=== PATIENT | female | born 2000 | race Caucasian/White ===

== ENCOUNTER 2020-07-27 07:34 | Emergency (ER) | payer SELFPAY ==
--- NOTE | 2020-07-27 08:20 | ER ---
Nurse's Notes [facility] Name: Fiona Kelley Age: 19 yrs Sex: Female : 2000 Arrival Date: 07/27/2020 Time: 07:39 Bed Waiting Private MD: Diagnosis: Presentation: 07/27 07:55 Chief complaint: Patient states: Twisted ankle and "heard it pop"at work around 6am aa5 today. Swelling and pain to right ankle. Coronavirus screen: At this time, the client does not indicate any symptoms associated with coronavirus-19. Ebola Screen: Patient negative for fever greater than or equal to 101.5 degrees Fahrenheit, and additional compatible Ebola Virus Disease symptoms. Initial Sepsis Screen: Does the patient meet any 2 criteria? No. Patient's initial sepsis screen is negative. Does the patient have a suspected source of infection? No. Patient's initial sepsis screen is negative. Risk Assessment: Do you want to hurt yourself or someone else? Patient reports no desire to harm self or others. Onset of symptoms was July 27, 2020. 07:55 Method Of Arrival: Wheelchair aa5 07:55 Acuity: ABDIRAHMAN 4 aa5 Historical: - Allergies: 07:56 No Known Allergies; aa5 - PMHx: 07:56 Asthma; aa5 - PSHx: 07:56 None; aa5 - Immunization history:: Adult Immunizations up to date. - Social history:: Smoking status: Patient reports the use of cigarette tobacco products, smokes one-half pack cigarettes per day. Vital Signs: 07:55 BP 120 / 75; Pulse 79; Resp 16 S; Temp 98.0(TE); Pulse Ox 99% on R/A; aa5 ED Course: 07:39 Patient arrived in ED. am2 07:56 Triage completed. aa5 07:56 Arm band placed on. aa5 08:19 Jose Lester MD is Attending Physician. aa5 Administered Medications: No medications were administered Outcome: 08:18 Eloped from waiting room, post triage evaluation and consult. X-ray tech looked for pt aa5 in ER lobby to complete x-ray and registration staff reported pt eloped. 08:19 Patient left the ED. aa5 Signatures: Carol Ferris RN RN aa5 Berna Guerra am2 Corrections: (The following items were deleted from the chart) 07:57 07:55 Chief complaint: Patient states: Twisted ankle at work around 6am today. Swelling aa5 and pain to right ankle. aa5
[2020-07-27 08:28] VITALS: BP 120/75; TEMP 98; O2SAT 99
== END 2020-07-27 08:19 | disposition left against medical advice (07) ==
LOC: ER 07:34
DX: Z53.21 Procedure and treatment not carried out due to patient leaving prior to being seen by health care provider (principal)
CPT/HCPCS: 99281

== ENCOUNTER 2023-11-10 16:41 | Observation (INO) | payer BC ==
--- NOTE | 2023-11-10 17:43 | RAD REPORT ---
EXAM DESCRIPTION: US - Abdomen Exam Limited - 11/10/2023 5:26 pm CLINICAL HISTORY: ABD PAIN COMPARISON: <Comparisons> FINDINGS: The gallbladder demonstrates a stone in the neck. No pericholecystic fluid or gallbladder wall thickening. The common bile duct is normal measuring 4 mm. The liver demonstrates no findings of intrahepatic biliary dilatation. IMPRESSION: Cholelithiasis.
[2023-11-10 17:53] LABS: Absolute Basophils 0.1 K/uL (0-0.5); Absolute Eosinophils 0.3 K/uL (0-0.5); Absolute Monocytes 0.6 K/uL (0.1-1.3); Absolute Neutrophil 10.1 K/uL (1.8-8.0); Basophils % 0.5 % (0-1.3); Eosinophils % 2.4 % (0-4.4); Hematocrit 39.7 % (36.0-45.0); Hemoglobin 13.3 g/dL (12.0-15.0); Lymphocytes % 15.2 % (15.3-44.8); MCH 30.2 pg (27.0-35.0); MCHC 33.4 g/dL (32.0-36.0); MCV 90.4 fL (80-100); MPV 8.3 fL (7.6-11.3); Monocytes % 4.5 % (3.3-12.3); Neutrophils % 77.4 % (41.7-73.7); Platelets 325 thou/uL (152-406); RBC Red Blood Cell Count 4.39 M/uL (3.86-4.86)
[2023-11-10 17:54] LABS: Specific Gravity 1.007 (1.005-1.030)
[2023-11-10 17:58] LABS: Specific Gravity 1.007 (1.005-1.030); Sqamous Epithelial <5 /HPF (None Seen); Urine Bacteria None Seen /HPF (<20); Urine Bilirubin NEGATIVE (Negative); Urine Blood 1+ (Negative); Urine Clarity Clear (Clear); Urine Color Colorless (Yellow); Urine Culture Reflex Order NOT NEEDED; Urine Glucose NEGATIVE (Negative); Urine Ketones NEGATIVE (Negative); Urine Microscopic Reflex YN ORDER UMIC; Urine Nitrite NEGATIVE (Negative); Urine Protein NEGATIVE (Negative); Urine RBC <5 /HPF (None Seen); Urine Urobilinogen Normal (Normal); Urine WBC <5 /HPF (<5)
[2023-11-10 18:11] LABS: Albumin 3.6 g/dL (3.4-5.0); Albumin/Globulin Ratio 1.1 (1.1-1.8); Anion Gap 5.9 mEq/L (5.0-15.0); Bilirubin Total 0.4 mg/dL (0.2-1.0); Globulin 3.3 g/dL (2.3-3.5); Potassium 3.9 mEq/L (3.5-5.1); Protein, Total 6.9 g/dL (6.4-8.2)
[2023-11-10] MEDS ORDERED: NA CHLORIDE 0.9% 100 ML ONE (19:21)
[2023-11-10] MEDS ORDERED: PIPERACIL/TAZO 3.375 GM VIAL IV ONE (19:21)
--- NOTE | 2023-11-10 19:22 | ER ---
Nurse's Notes [facility] Name: Fiona Kelley Age: 23 yrs Sex: Female : 2000 Arrival Date: 11/10/2023 Time: 16:41 Bed 26 Private MD: Diagnosis: Cholecystitis, unspecified;Other cholelithiasis with obstruction;Elevated white blood cell count;Epigastric abdominal tenderness Presentation: 11/09 16:54 Chief complaint: Patient states: Transferred from [facility] to our hospital for ss CT scan. Pt c/o ABD pain that began at noon today. Coronavirus screen: Client denies travel out of the [place] in the last 14 days. Ebola Screen: Patient denies exposure to infectious person. Patient denies travel to an Ebola-affected area in the 21 days before illness onset. Initial Sepsis Screen: Does the patient meet any 2 criteria? No. Patient's initial sepsis screen is negative. Does the patient have a suspected source of infection? No. Patient's initial sepsis screen is negative. Risk Assessment: Do you want to hurt yourself or someone else? Patient reports no desire to harm self or others. Onset of symptoms was November 10, 2023. Care prior to arrival: IV initiated. 20 GA, in the left antecubital area, Zofran 4 mg given prior at [facility]. 1000 mL NS bolus infusing at this time. 16:54 Method Of Arrival: Ambulatory ss 16:54 Acuity: ABDIRAHMAN 3 Triage Assessment: 16:56 General: Appears in no apparent distress. comfortable, Behavior is calm, cooperative. 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 - Infectious Disease History:: Denies. - Social history:: Smoking status: . Screenin:05 [facility] ED Fall Risk Assessment (Adult) History of falling in the last 3 months, iw including since admission No falls in past 3 months (0 pts) Confusion or Disorientation No (0 pts) Intoxicated or Sedated No (0 pts) Impaired Gait No (0 pts) Mobility Assist Device Used No (0 pt) Altered Elimination No (0 pt) Score/Fall Risk Level 0 - 2 = Low Risk. Abuse screen: Denies threats or abuse. Denies injuries from another. Nutritional screening: No deficits noted. Tuberculosis screening: No symptoms or risk factors identified. Assessment: 18:04 General: Appears in no apparent distress. Behavior is calm, cooperative. Pain: iw Complains of pain in right upper quadrant and right lower quadrant Pain currently is 0 out of 10 on a pain scale. Neuro: Level of Consciousness is awake, alert, obeys commands, Oriented to person, place, time, situation, Moves all extremities. Full function. Respiratory: Respiratory effort is even, unlabored, Respiratory pattern is regular, symmetrical. GI: Abdomen is non-distended, Abd is soft X 4 quads Reports upper abdominal pain, nausea. Derm: Skin is intact, is healthy with good turgor. Musculoskeletal: Range of motion: intact in all extremities. 18:56 Reassessment: Patient appears in no apparent distress at this time. Patient and/or iw family updated on plan of care and expected duration. Pain level reassessed. 19:15 General: Appears in no apparent distress. comfortable, Behavior is calm, cooperative, jw7 appropriate for age. Pain: Complains of pain in abdomen Pain does not radiate. Pain currently is 8 out of 10 on a pain scale. Quality of pain is described as sharp, Pain began gradually, Is intermittent. Neuro: Level of Consciousness is awake, alert, obeys commands, Oriented to person, place, time, situation, Appropriate for age. Cardiovascular: Heart tones S1 S2 present Capillary refill < 3 seconds Clubbing of nail beds is absent JVD is absent Patient's skin is warm and dry. Respiratory: Airway is patent Trachea midline Respiratory effort is even, unlabored, Respiratory pattern is regular, symmetrical. GI: Abdomen is round non-distended, Bowel sounds present X 4 quads. Abd is soft and non tender X 4 quads. Reports upper abdominal pain, nausea. : No deficits noted. No signs and/or symptoms were reported regarding the genitourinary system. EENT: No deficits noted. No signs and/or symptoms were reported regarding the EENT system. Derm: Skin is intact, is healthy with good turgor, Skin is dry, Skin is normal, Skin temperature is warm. Musculoskeletal: Circulation, motion, and sensation intact. Range of motion: intact in all extremities. 20:07 Reassessment: Patient appears in no apparent distress at this time. No changes from jw7 previously documented assessment. Patient and/or family updated on plan of care and expected duration. Pain level reassessed. Patient is alert, oriented x 3, equal unlabored respirations, skin warm/dry/pink. 21:27 Reassessment: Patient appears in no apparent distress at this time. No changes from jw7 previously documented assessment. Patient and/or family updated on plan of care and expected duration. Pain level reassessed. Patient is alert, oriented x 3, equal unlabored respirations, skin warm/dry/pink. Vital Signs: 17:58 BP 108 / 71; Pulse 51; Resp 16; Temp 98.1; Pulse Ox 100% on R/A; iw 19:00 BP 109 / 61; Pulse 67; Resp 16 S; Pulse Ox 100% on R/A; jw7 20:00 BP 123 / 79; Pulse 51; Resp 15 S; Pulse Ox 100% on R/A; jw7 21:27 BP 115 / 68; Pulse 60; Resp 16 S; Temp 98.5(O); Pulse Ox 99% on R/A; jw7 ED Course: 16:54 Patient arrived in ED. ss 16:55 Jose Lester MD is Attending Physician. iftikhar 16:56 Triage completed. ss 16:56 Arm band placed on right wrist. ss 17:27 Abdomen Limited US In Process Unspecified. EDMS 17:46 CBC with Diff Sent. zm 17:46 CMP Sent. zm 17:46 Lipase Sent. zm 17:46 Test, Urine Sent. zm 17:46 Urinalysis w/ reflexes Sent. zm 17:47 Maintain EMS IV. Dressing intact. Good blood return noted. Site clean \T\ dry. Gauge \T\ zm site: 20G LAC. Flushed left antecubital saline lock. 18:04 Shruthi Ruiz RN is Primary Nurse. iw 18:05 Patient has correct armband on for positive identification. Provided Education on: . iw 18:55 CT Abd/Pelvis - IV Contrast Only In Process Unspecified. EDMS 18:56 No provider procedures requiring assistance completed. iw 19:00 Report received from TIM Hawkins. jw7 19:14 Shannan Stauffer MD is Hospitalizing Provider. iftikhar 21:24 Patient admitted, IV remains in place. jw7 Administered Medications: 18:06 Drug: NS 0.9% IV 1000 ml IV at 1 bolus Per protocol; 1000 mL bolus Route: IV; Rate: 1 iw bolus; Site: left antecubital; 19:30 Follow up: Response: No adverse reaction; IV Status: Completed infusion; IV Intake: jw7 1000ml 19:41 Drug: Piperacillin-Tazobactam IVPB 3.375 grams IVPB once over 60 mins; (mix in NS 100 jw7 mL) Route: IVPB; Infused Over: 60 mins; Site: left antecubital; 20:55 Follow up: Response: No adverse reaction; IV Status: Completed infusion; IV Intake: jw7 100ml 20:01 Drug: Famotidine IVP 20 mg IVP once; dilute with 10 mL 0.9% NaCl; give over 2 minutes jw7 Route: IVP; Site: left antecubital; 21:26 Follow up: Response: No adverse reaction; Marked relief of symptoms jw7 20:01 Drug: Ondansetron IVP 4 mg IVP once; over 2 minutes Route: IVP; Site: left antecubital; jw7 21:26 Follow up: Response: No adverse reaction; Marked relief of symptoms jw7 20:01 Drug: morphine IVP or IV 4 mg IVP once over 4 mins Route: IVP; Infused Over: 4 mins; jw7 Site: left antecubital; 21:26 Follow up: Response: No adverse reaction; Marked relief of symptoms jw7 Medication: 18:05 VIS not applicable for this client. iw Intake: 19:30 IV: 1000ml; Total: 1000ml. jw7 20:55 IV: 100ml; Total: 1100ml. jw7 Outcome: 19:21 Decision to Hospitalize by Provider. iftikhar 21:24 Admitted to Med/surg accompanied by conrado, via wheelchair, room 215, jw7 21:24 Condition: stable 21:24 Instructed on the need for admit, Demonstrated understanding of instructions, 21:27 Patient left the ED. jw7 Signatures: Dispatcher [employer] EDJose Giraldo MD MD cha Williams, Irene, RN Sheba Light RN RN ss Waits, Jodi, RN RN jw7 Martinez, Zaina zm Corrections: (The following items were deleted from the chart) 17:59 17:58 Pulse 51bpm; Resp 16bpm; Pulse Ox 100% RA; Temp 98.1F; iw iw
--- NOTE | 2023-11-10 19:22 | EDPHYS ---
Physician Documentation [facility] Name: Fiona Kelley Age: 23 yrs Sex: Female : 2000 Arrival Date: 11/10/2023 Time: 16:41 Bed 26 Private MD: ED Physician Jose Lester HPI: 11/09 19:06 This 23 yrs old Female presents to ER via Ambulatory with complaints of iftikhar Abdominal Pain. 19:06 The patient presents with abdominal pain in the epigastric area, in the upper abdomen. iftikhar Onset: The symptoms/episode began/occurred just prior to arrival, this morning. The symptoms radiate to Associated signs and symptoms: Pertinent positives: nausea and vomiting. The symptoms are described as constant, crampy. Modifying factors: The symptoms are alleviated by nothing, the symptoms are aggravated by nothing. Severity of pain: At its worst the pain was moderate in the emergency department the pain is unchanged. The patient has not experienced similar symptoms in the past. 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 - Infectious Disease History:: Denies. - Social history:: Smoking status: . ROS: 19:07 Constitutional: Negative for fever, chills, and weight loss, Eyes: Negative for injury, itfikhar pain, redness, and discharge, ENT: Negative for injury, pain, and discharge, Neck: Negative for injury, pain, and swelling, Cardiovascular: Negative for chest pain, palpitations, and edema, Respiratory: Negative for shortness of breath, cough, wheezing, and pleuritic chest pain, Back: Negative for injury and pain, : Negative for injury, bleeding, discharge, and swelling, MS/Extremity: Negative for injury and deformity, Skin: Negative for injury, rash, and discoloration, Neuro: Negative for headache, weakness, numbness, tingling, and seizure, Psych: Negative for depression, anxiety, suicide ideation, homicidal ideation, and hallucinations, Allergy/Immunology: Negative for hives, rash, and allergies, Endocrine: Negative for neck swelling, polydipsia, polyuria, polyphagia, and marked weight changes, Hematologic/Lymphatic: Negative for swollen nodes, abnormal bleeding, and unusual bruising, 19:07 Abdomen/GI: Positive for abdominal pain, nausea and vomiting, abdominal cramps, abdominal distension, of the epigastric area and right upper quadrant, Exam: 19:07 Constitutional: This is a well developed, well nourished patient who is awake, alert, iftikhar and in no acute distress. Head/Face: Normocephalic, atraumatic. Eyes: Pupils equal round and reactive to light, extra-ocular motions intact. Lids and lashes normal. Conjunctiva and sclera are non-icteric and not injected. Cornea within normal limits. Periorbital areas with no swelling, redness, or edema. ENT: Nares patent. No nasal discharge, no septal abnormalities noted. Tympanic membranes are normal and external auditory canals are clear. Oropharynx with no redness, swelling, or masses, exudates, or evidence of obstruction, uvula midline. Mucous membranes moist. Neck: Trachea midline, no thyromegaly or masses palpated, and no cervical lymphadenopathy. Supple, full range of motion without nuchal rigidity, or vertebral point tenderness. No Meningismus. Chest/axilla: Normal chest wall appearance and motion. Nontender with no deformity. No lesions are appreciated. Cardiovascular: Regular rate and rhythm with a normal S1 and S2. No gallops, murmurs, or rubs. Normal PMI, no JVD. No pulse deficits. Respiratory: Lungs have equal breath sounds bilaterally, clear to auscultation and percussion. No rales, rhonchi or wheezes noted. No increased work of breathing, no retractions or nasal flaring. Back: No spinal tenderness. No costovertebral tenderness. Full range of motion. Skin: Warm, dry with normal turgor. Normal color with no rashes, no lesions, and no evidence of cellulitis. MS/ Extremity: Pulses equal, no cyanosis. Neurovascular intact. Full, normal range of motion. Neuro: Awake and alert, GCS 15, oriented to person, place, time, and situation. Cranial nerves II-XII grossly intact. Motor strength 5/5 in all extremities. Sensory grossly intact. Cerebellar exam normal. Normal gait. 19:07 Abdomen/GI: Inspection: abdomen appears normal, Bowel sounds: normal, Palpation: moderate abdominal tenderness, in the right upper quadrant, Liver: no appreciated palpable abnormalities, Hernia: not appreciated, 19:07 Musculoskeletal/extremity: DVT Exam: No signs of deep vein thrombosis. no pain, no swelling, no tenderness, negative Homans' sign noted on exam, no appreciated bluish discoloration, no erythema, no increased warmth, Vital Signs: 17:58 BP 108 / 71; Pulse 51; Resp 16; Temp 98.1; Pulse Ox 100% on R/A; iw 19:00 BP 109 / 61; Pulse 67; Resp 16 S; Pulse Ox 100% on R/A; jw7 20:00 BP 123 / 79; Pulse 51; Resp 15 S; Pulse Ox 100% on R/A; jw7 21:27 BP 115 / 68; Pulse 60; Resp 16 S; Temp 98.5(O); Pulse Ox 99% on R/A; jw7 MDM: 16:55 Patient medically screened. [facility] 19:08 Differential diagnosis: gastritis, cholecystitis, pancreatitis, appendicitis, iftikhar diverticulitis, gastroenteritis, cholecystitis, Cholelithiasis, diverticulitis, gastritis, Hepatitis, Menorrhagia, Mesenteric ischemia or infarction, non-specific abd pain, pancreatitis, Peptic Ulcer Disease, Perf. Duodenal Ulcer, Pelvic Inflammatory Disease, Pyelonephritis, urinary tract infection. Data reviewed: vital signs, nurses notes, EMS record, lab test result(s), EKG, radiologic studies, CT scan, ultrasound. Consideration of Admission/Observation Patient was admitted/placed on observation. Escalation of care including admission/observation considered. I considered the following discharge prescriptions or medication management in the emergency department Medications were administered in the Emergency Department. See MAR. Independent interpretation of the following test(s) in the Emergency Department CT Scan: My interpretation is ct abd pelvis. Test considered but Not performed: EKG: no ekg. Care significantly affected by the following chronic conditions: Obesity, asthma. 11/09 16:55 Order name: CBC with Diff; Complete Time: 19: [facility] 11/09 16:55 Order name: CMP; Complete Time: 19: [facility] 11/09 16:56 Order name: Lipase; Complete Time: 19: [facility] 11/09 16:56 Order name: Test, Urine; Complete Time: 19: [facility] 11/09 16:56 Order name: Urinalysis w/ reflexes; Complete Time: 19: [facility] 11/09 19:53 Order name: CBC with Automated Diff EDMS 11/09 19:53 Order name: CBC with Automated Diff EDUT 11/09 19:53 Order name: Comprehensive Metabolic Panel [facility]UT 11/09 19:53 Order name: Comprehensive Metabolic Panel [facility] 11/09 16:56 Order name: Abdomen Limited US; Complete Time: 19:01 [facility] 11/09 16:56 Order name: CT Abd/Pelvis - IV Contrast Only; Complete Time: 21:06 [facility] 11/09 19:53 Order name: CONS Physician Consult EDUT 11/09 16:56 Order name: IV Saline Lock; Complete Time: 17:36 [facility] 11/09 16:56 Order name: Labs collected and sent; Complete Time: 17:46 [facility] Administered Medications: 18:06 Drug: NS 0.9% IV 1000 ml IV at 1 bolus Per protocol; 1000 mL bolus Route: IV; Rate: 1 iw bolus; Site: left antecubital; 19:30 Follow up: Response: No adverse reaction; IV Status: Completed infusion; IV Intake: jw7 1000ml 19:41 Drug: Piperacillin-Tazobactam IVPB 3.375 grams IVPB once over 60 mins; (mix in NS 100 jw7 mL) Route: IVPB; Infused Over: 60 mins; Site: left antecubital; 20:55 Follow up: Response: No adverse reaction; IV Status: Completed infusion; IV Intake: jw7 100ml 20:01 Drug: Famotidine IVP 20 mg IVP once; dilute with 10 mL 0.9% NaCl; give over 2 minutes jw7 Route: IVP; Site: left antecubital; 21:26 Follow up: Response: No adverse reaction; Marked relief of symptoms jw7 20:01 Drug: Ondansetron IVP 4 mg IVP once; over 2 minutes Route: IVP; Site: left antecubital; jw7 21:26 Follow up: Response: No adverse reaction; Marked relief of symptoms jw7 20:01 Drug: morphine IVP or IV 4 mg IVP once over 4 mins Route: IVP; Infused Over: 4 mins; jw7 Site: left antecubital; 21:26 Follow up: Response: No adverse reaction; Marked relief of symptoms jw7 Disposition Summary: 11/10/23 19:21 Hospitalization Ordered Notes: Hospitalization Status: Observation iftikhar Provider: Shannan Stauffer cha Location: Telemetry/MedSurg (observation) iftikhar Condition: Stable iftikhar Problem: new iftikhar Symptoms: have improved iftikhar Bed/Room Type: Standard iftikhar Room Assignment: 215(11/10/23 20:07) jb4 Diagnosis - Cholecystitis, unspecified iftikhar - Other cholelithiasis with obstruction iftikhar - Elevated white blood cell count iftikhar - Epigastric abdominal tenderness iftikhar Forms: - Medication Reconciliation Form iftikhar - SBAR form iftikhar - Leadership Thank You Letter iftikhar Signatures: Dispatcher [employer] EDMS Jose Lester MD MD cha Williams, Irene, TIM RN Sheba Trevino RN RN Maycol Castillo RN RN jb4 Caryn Shen RN RN jw7 Corrections: (The following items were deleted from the chart) 16:56 16:56 Abdomen Limited+US.RAD.BRZ ordered. EDMS EDMS 16:56 16:56 Abdomen Pelvis W Con+CT.RAD.BRZ ordered. EDMS EDMS 20:07 19:21 iftikhar jb4
--- NOTE | 2023-11-10 19:27 | RAD REPORT ---
EXAM DESCRIPTION: CTAbdomen Pelvis W Contrast - 11/10/2023 6:53 pm CLINICAL HISTORY: Abdominal pain. ABD PAIN COMPARISON: Abdomen Exam Limited dated 11/10/2023 TECHNIQUE: Biphasic CT imaging of the abdomen and pelvis was performed with 100 ml non-ionic IV cont rast. All CT scans are performed using dose optimization technique as appropriate and may include automated exposure control or mA/KV adjustment according to patient size. FINDINGS: The lung bases are clear. The liver, spleen, pancreas, adrenal glands and kidneys are within normal limits. No bowel obstruction, free air, free fluid or abscess. The appendix is normal. No evidence of signi ficant lymphadenopathy. No suspicious bony findings. IMPRESSION: No acute intra-abdominal or pelvic finding.
[2023-11-10] MEDS ORDERED: FAMOTIDINE 20 MG/2 ML VIAL IV ONE (19:45)
[2023-11-10] MEDS ORDERED: MORPHINE 4 MG/ML SYR ONE (19:45)
[2023-11-10] MEDS ORDERED: ONDANSETRON 4 MG/2 ML VIAL ONE (19:45)
[2023-11-10] MEDS ORDERED: ALBUTEROL 2.5 MG/3 ML NEB SOL NEB PRN (19:48)
--- NOTE | 2023-11-10 19:48 | P.HP ---
Certification for Inpatient Patient admitted to: Observation With expected LOS: <2 Midnights Patient will require the following post-hospital care: None Practitioner: I am a practitioner with admitting privileges, knowledge of patient current condition, hospital course, and medical plan of care. Services: Services provided to patient in accordance with Admission requirements found in Title 42 Section 412.3 of the Code of Federal Regulations Patient History Date of Service: 11/10/23 Reason for admission: Abdominal pain History of Present Illness: 23-year-old female with past medical history of asthma who presents here with sudden onset abdominal pain earlier this morning. Pain is located in the right upper quadrant, nonradiating, associated with nausea with 1 episode of vomiting nonbilious. Patient denies any fever or chills she denies any diarrhea She denies any similar episode in the past She presented at [facility] today she was diagnosed with presumed cholelithiasis and transferred here. On arrival in the ED vital signs stable, afebrile, CT of the abdomen and pelvis shows no acute intra-abdominal pathology. Abdominal ultrasound shows gallstone in the neck of the gallbladder no associated gallbladder wall thickness . No pericholecystic fluid or gallbladder wall thickening. The common bile duct is normal measuring 4 mm. General surgery has been consulted. Patient will be admitted for symptomatic cholelithiasis Home medications list reviewed: No - Past Medical/Surgical History Has patient received pneumonia vaccine in the past: No -: Asthma Past Surgical History: Reviewed- Non-Contributory - Family History Family History: Reviewed- Non-Contributory - Social History Smoking Status: Never smoker Smoking therapy provided: No Patient receptive to therapy: No Alcohol use: No CD- Drugs: No Caffeine use: No Place of Residence: Home Review of Systems Gastrointestinal: Nausea, Vomiting, Abdominal Pain Physical Examination - Physical Exam General: Alert, In no apparent distress, Oriented x3, Cooperative HEENT: Atraumatic, Normocephalic, PERRLA Neck: Supple, 2+ carotid pulse no bruit, JVD not distended Respiratory: Clear to auscultation bilaterally, Normal air movement Cardiovascular: Normal pulses, Regular rate/rhythm, Normal S1 S2 Capillary refill: <2 Seconds Gastrointestinal: Normal bowel sounds, Soft and benign, Non-distended, No rebound, No guarding, Tenderness (RUQ) Musculoskeletal: No clubbing, No swelling Integumentary: No rashes, No breakdown, No significant lesion Neurological: Normal speech, Normal strength at 5/5 x4 extr, Sensation intact, Cranial nerves 3-12 intact - Studies Laboratory Data (last 24 hrs) 11/10/23 11/10/23 17:40 17:40 WBC 13.10 H Hgb 13.3 Hct 39.7 Plt Count 325 Sodium 138 Potassium 3.9 BUN 8 Creatinine 0.80 Glucose 91 Total Bilirubin 0.4 AST 12 L ALT 16 Alkaline Phosphatase 65 Lipase 36 Assessment and Plan - Problems (Diagnosis) (1) Cholelithiasis with biliary obstruction Current Visit: Yes Status: Acute - Plan Impression Acute symptomatic cholelithiasis History of asthma Plan Admit to observation Gentle IV fluid Pain control Antiemetics N.p.o. past midnight General surgery consult in a.m., may need cholecystectomy Full code Early ambulation for DVT prophylaxis Possible discharge in next 24-48 Discharge Plan: Home Plan to discharge in: 24 Hours - Advance Directives Does patient have a Living Will: No Does patient have a Durable POA for Healthcare: No Physician Review: Patient Assessed, Agree with Above Assessment and Plan Time Spent Managing Pts Care (In Minutes): 65
[2023-11-10 20:56] VITALS: BMI 33.7
[2023-11-10 22:18] VITALS: O2SAT 99
[2023-11-10] MEDS: D5 0.9 NS 1,000 ML IV SCH (22:27)
[2023-11-11] MEDS: MORPHINE 2 MG/ML SYR IV PRN (00:07)
[2023-11-11 07:18] LABS: Absolute Eosinophils 0.5 K/uL (0-0.5); Absolute Lymphocytes (CBC) 2.9 K/uL (0.7-4.9); Absolute Monocytes 0.6 K/uL (0.1-1.3); Absolute Neutrophil 4.6 K/uL (1.8-8.0); Basophils % 0.5 % (0-1.3); Eosinophils % 5.6 % (0-4.4); Hematocrit 36.8 % (36.0-45.0); Hemoglobin 12.7 g/dL (12.0-15.0); Lymphocytes % 33.3 % (15.3-44.8); MCH 31.4 pg (27.0-35.0); MCHC 34.6 g/dL (32.0-36.0); MCV 90.7 fL (80-100); MPV 8.6 fL (7.6-11.3); Monocytes % 7.3 % (3.3-12.3); Neutrophils % 53.3 % (41.7-73.7); Nucleated Red Blood Cells % 0.1 % (0-0); Platelets 303 thou/uL (152-406); RBC Red Blood Cell Count 4.06 M/uL (3.86-4.86); Red Cell Distribution Width 13.8 % (12.1-15.2)
[2023-11-11] MEDS: ONDANSETRON 4 MG/2 ML VIAL IV PRN (07:35)
[2023-11-11 08:39] LABS: ALT/SGPT < 14 U/L (13-56); AST/SGOT 12 U/L (15-37); Albumin 3.2 g/dL (3.4-5.0); Albumin/Globulin Ratio 1.1 (1.1-1.8); Alkaline Phosphatase 59 U/L (45-117); Anion Gap 2.8 mEq/L (5.0-15.0); BUN Blood Urea Nitrogen 6 mg/dL (7-18); Bicarbonate 32 mEq/L (21-32); Bilirubin Total 0.8 mg/dL (0.2-1.0); Glomerular Filtration Rate 104 ml/min (=/>90); Glucose Level 88 mg/dL (74-106); Potassium 3.8 mEq/L (3.5-5.1); Protein, Total 6.2 g/dL (6.4-8.2); Sodium Level 139 mEq/L (136-145)
[2023-11-11 09:09] VITALS: BP 113/77; TEMP 97.9
--- NOTE | 2023-11-11 10:00 | P.DS ---
Admission Date: 11/10/23 Discharge Date: 11/11/23 Reason for Admission: Abdominal pain Consultations: Dr. Ricardo Procedures: none Brief History of Present Illness: 23-year-old female with past medical history of asthma who presents here with sudden onset abdominal pain earlier this morning. Pain is located in the right upper quadrant, nonradiating, associated with nausea with 1 episode of vomiting nonbilious. Patient denies any fever or chills she denies any diarrhea She has had similar episode in the past. She presented at [facility] today and diagnosed with presumed cholelithiasis and transferred here. On arrival in the ED vital signs stable, afebrile, CT of the abdomen and pelvis shows no acute intra-abdominal pathology. Abdominal ultrasound shows gallstone in the neck of the gallbladder no associated gallbladder wall thickness . No pericholecystic fluid or gallbladder wall thickening. The common bile duct is normal measuring [address] Ricardo was consulted from the ED. Patient will be admitted for sympt omatic cholelithiasis. Hospital Course: Ms. Kelley did well over the course of her hospitalization. Her pain is relieved. Dr. Ricardo evaluated her and discussed gallbladder diet and follow- up. She voices understanding and agreement with plan for follow-up. <Maci Farnsworth - Last Filed: 11/11/23 10:00> Admission Date: 11/10/23 Discharge Date: 11/11/23 Hospital Course: Pt seen and examined. I agree with the note by the HAND GLASS CUTTER. POD #1 lap chol. Pt is feeling better and tolerated diet. Ok to discharge pt. <Lisa Dow - Last Filed: 11/11/23 10:35> Disposition: ROUTINE DISCHARGE Discharge Condition: GOOD Vital Signs/Physical Exam: Temp Pulse Resp BP Pulse Ox 97.9 F 69 15 113/77 99 11/11/23 08:00 11/11/23 08:00 11/11/23 08:05 11/11/23 08:00 11/11/23 08:05 General: Alert, In no apparent distress, Oriented x3 HEENT: Atraumatic, Normocephalic Neck: Supple Respiratory: Normal air movement Cardiovascular: Normal pulses Capillary refill: <2 Seconds Gastrointestinal: Normal bowel sounds, Soft and benign, Non-distended Musculoskeletal: No clubbing Integumentary: No rashes Neurological: Normal speech, Normal tone, Normal affect Lymphatics: No axilla or inguinal lymphadenopathy External genitalia: Deferred Rectal: Deferred Laboratory Data at Discharge: WBC 8.70 thou/uL (4.3-10.9) 11/11/23 06:58 Hgb 12.7 g/dL (12.0-15.0) 11/11/23 06:58 Hct 36.8 % (36.0-45.0) 11/11/23 06:58 Plt Count 303 thou/uL (152-406) 11/11/23 06:58 Sodium 139 mEq/L (136-145) 11/11/23 06:58 Potassium 3.8 mEq/L (3.5-5.1) 11/11/23 06:58 BUN 6 mg/dL (7-18) L 11/11/23 06:58 Creatinine 0.81 mg/dL (0.55-1.02) 11/11/23 06:58 Glucose 88 mg/dL (74-106) 11/11/23 06:58 Total Bilirubin 0.8 mg/dL (0.2-1.0) 11/11/23 06:58 AST 12 U/L (15-37) L 11/11/23 06:58 ALT < 14 U/L (13-56) 11/11/23 06:58 Alkaline Phosphatase 59 U/L (45-117) 11/11/23 06:58 Lipase 36 U/L (13-75) 11/10/23 17:40 <Farnsworth,Maci Luis - Last Filed: 11/11/23 10:00> Vital Signs/Physical Exam: Temp Pulse Resp BP Pulse Ox 97.9 F 69 15 113/77 99 11/11/23 08:00 11/11/23 08:00 11/11/23 08:05 11/11/23 08:00 11/11/23 08:05 Laboratory Data at Discharge: WBC 8.70 thou/uL (4.3-10.9) 11/11/23 06:58 Hgb 12.7 g/dL (12.0-15.0) 11/11/23 06:58 Hct 36.8 % (36.0-45.0) 11/11/23 06:58 Plt Count 303 thou/uL (152-406) 11/11/23 06:58 Sodium 139 mEq/L (136-145) 11/11/23 06:58 Potassium 3.8 mEq/L (3.5-5.1) 11/11/23 06:58 BUN 6 mg/dL (7-18) L 11/11/23 06:58 Creatinine 0.81 mg/dL (0.55-1.02) 11/11/23 06:58 Glucose 88 mg/dL (74-106) 11/11/23 06:58 Total Bilirubin 0.8 mg/dL (0.2-1.0) 11/11/23 06:58 AST 12 U/L (15-37) L 11/11/23 06:58 ALT < 14 U/L (13-56) 11/11/23 06:58 Alkaline Phosphatase 59 U/L (45-117) 11/11/23 06:58 Lipase 36 U/L (13-75) 11/10/23 17:40 <Lisa Dow - Last Filed: 11/11/23 10:35> Diet: GB diet Activity: Ad randa <Maci Farnsworth - Last Filed: 11/11/23 10:00> <Lisa Dow - Last Filed: 11/11/23 10:35> Home Medications: Dicyclomine [Bentyl*] 10 mg PO TID PRN #21 cap 11/11/23 New Medications: Dicyclomine [Bentyl*] 10 mg PO TID PRN #21 cap PRN Reason: Abdominal Cramps Physician Discharge Instructions: Ms. Kelley did well over the course of her hospitalization. Her pain is relieved. Dr. Ricardo evaluated her and discussed gallbladder diet and follow- up. She voices understanding and agreement with plan for follow-up. Okay to DC IV and DC home Follow-up with primary care provider in 1 to 2 weeks Follow-up with Dr. Ricardo in 1 to 2-weeks Please call the inpatient unit for any questions or concerns regarding hospital stay Return to the ER for worsening symptoms Followup: Oliver Ricardo MD [ACTIVE - CAN ADMIT] - NONE,NONE [Primary Care Provider] -
--- NOTE | 2023-11-11 11:09 | CON ---
Date of Consultation: 11/11/2023 Brief History Of Present Illness: The patient is a 23-year-old female with a 4-month history of righ t upper quadrant and epigastric abdominal pain associated with postprandial greasy meals. She states the pain has occurred several times before in a similar fashion and lasts typically for about a day, ultimately resolving to a soreness, which has occurred however several times over the past 4 months. She had another episode yesterday whereby she had eaten some greasy food with a significant amount of mayonnaise ultimately resulting in right upper quadrant sharp stabbing pain radiating through to h er back associated with mild nausea. The pain was severe while at [facility]. She was transferred to [facility] ER, at which point she was evaluated, admitted with a diagnosis of symptomatic cholelit hiasis ultimately now in the hospital. I spoke to the patient and she states that her pain has essen tially resolved. It is now minimal soreness in the right upper quadrant area. She has gotten some p ain medication, but she states that even between these pain medication administrations it has signifi cantly improved from prior, similar to her previous episodes before in the past. She currently has n o nausea, no vomiting, no pain, only mild tenderness with manipulation of the area, but she has been ambulatory. Past Medical History: Asthma. Past Surgical History: Negative. 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 Social History: She vapes and uses THC/cannabis frequently. She drinks alcohol only occasionally an d recreationally. She denies any other recreational drug. Review of Systems: Ten-point review of systems other than HPI, she denies. Physical Examination: Vital Signs: At the time of my examination, her blood pressure is 113/73, pulse 69, respiratory rate 15, temperature 97.9. Pain level was 0 at the time of our examination. General: She is awake, alert, and oriented. Psychiatric: She is appropriate, conversive. HEENT: She is normocephalic. Her sclerae were anicteric. Her mucous membranes are moist. Orophary nx clear. Neck: Supple without JVD. Chest: Normal expansion and excursion. Cardiovascular: Regular rate and rhythm. Pulmonary: Clear to auscultation bilaterally. Abdomen: Soft, nontender, nondistended. No rebound. No guarding. No focal peritonitis. Negative Neal sign. No hernias appreciated. She is obese generally. Extremities: No clubbing, cyanosis, edema. Skin: Warm and dry. Laboratory Data: Revealed a white blood cell count of 8.7, hemoglobin is 12.7, hematocrit of 36.8, p latelet count was 303, neutrophils were normal at 53%. Her sodium 139, potassium 3.8, chloride 108, carbon dioxide 32, BUN 6, creatinine 0.8, glucose was 88. Her total bilirubin is 0.8. Her AST is 12 , ALT was less than 14, alkaline phosphatase is 59. Her lipase is 36. Her urinalysis was essentiall y negative. Urine test was negative. She had imaging studies, which included a CT of the abdomen and pelvis as well as an ultrasound of the abdomen. The CT of the abdomen was officially lela d as liver, spleen, pancreas, adrenal glands, and kidneys normal. The appendix is normal. No acute intraabdominal or pelvic findings. Her ultrasound was then performed, which was officially read as g allbladder demonstrates a stone in the neck. No pericholecystic fluid or gallbladder wall thickening . The common bile duct is normal measuring 4 mm. She has cholelithiasis. There is no intrahepatic ductal dilatation. Assessment And Plan: This is a 23-year-old female who comes in with signs and symptoms of symptomati c cholelithiasis. 1.IV fluid hydration. 2.Antibiotic coverage. 3.I have explained the risks, benefits, and alternatives of laparoscopic possible open cholecystecto my with indocyanine green cholangiography including, but not limited to bleeding; infection; damage t o surrounding tissues; need for further operative procedures; injury to bile ducts, intestines, liver ; heart attack; blood clots; strokes; other unforeseen complications in the perioperative period and postoperative period. 4.I have recommended surgery on this admission due to her frequent episodes and recurrent pain and p resentation with a gallbladder neck stone; however, the patient states that as it is a November, s he would rather go home, as she is feeling completely asymptomatic at this point. I have explained t hat this might be a temporary window where she is symptom-free, but if she continues with her current dietary plan, there is a high likelihood of recurrent pain. She would rather go home and get this d one as an outpatient, as she states that it is a holiday weekend and she would really prefer not to h ave surgery at this time, and therefore, would like to continue as an outpatient with followup in a c losed interval after the upcoming holiday. I have explained that she could have multiple issues and I have explained the risks, benefits, and alternatives of this plan and I have reiterated the ability to do surgery and recommendation to do surgery at this point. However, she has reiterated that she would rather go home, and therefore, will not agree to surgical intervention at this time. The patie nt states she will follow up with me as an outpatient this coming week to schedule elective cholecyst ectomy as an outpatient. HENRIETTA/GALINA Voice ID: [id number] Report ID: [id number]
== END 2023-11-11 10:51 | disposition home or self-care (01) ==
LOC: ER 16:41 → ERHOLD 19:48 → 2ND 20:42
PROVIDERS: ADMIT Internal Medicine; ATTEND Hospitalist
DX: K80.21 Calculus of gallbladder without cholecystitis with obstruction (principal); J45.909 Unspecified asthma, uncomplicated; Z91.040 Latex allergy status; Z91.018 Allergy to other foods
CPT/HCPCS: 96365; 96361; 85025 ×2; 81001; 36415; 81025; 83690; 80053 ×2; 74177; 76705; 96375; 99285; Q9967; J2543; J2270 ×2; J2405 ×2; J7042 ×2

== ENCOUNTER 2024-01-03 11:26 | Day surgery (SDC) | payer BC ==
[2023-12-31 09:44] LABS: Anion Gap 7.8 mEq/L (5.0-15.0); Potassium 3.8 mEq/L (3.5-5.1)
--- NOTE | 2023-12-31 13:26 | EKG ---
Test Date: 2023-12-31 Test Time: 09:16:24 Grinder Set Up Operator Surface: AMBERLY MEASUREMENT RESULTS: Intervals: Rate: 52 SD: 172 QRSD: 90 QT: 412 QTc: 383 [place]: P: 66 SD: 172 QRS: 78 T: 51 INTERPRETIVE STATEMENTS: Sinus bradycardia with sinus arrhythmia Otherwise normal ECG No previous ECG available for comparison Electronically Signed On 12-31-23 13:26:02 CDT by Bennie Wong
[2024-01-03] MEDS ORDERED: propofoL 200 MG/20 ML VIAL IV ONE (12:03)
[2024-01-03] MEDS ORDERED: MIDAZOLAM HCL 2 MG/2 ML INJ ONE (12:03)
[2024-01-03] MEDS ORDERED: ONDANSETRON 4 MG/2 ML VIAL ONE (12:03)
[2024-01-03] MEDS ORDERED: dexAMETHasone 10 MG/ML VIAL ONE (12:03)
[2024-01-03] MEDS ORDERED: KETOROLAC 30 MG/ML INJ ONE (12:03)
[2024-01-03] MEDS ORDERED: LIDOCAINE 2% MPF 5 ML VIAL ONE (12:03)
[2024-01-03] MEDS ORDERED: ROCURONIUM 50 MG/5 ML VIAL IV ONE (12:03)
[2024-01-03] MEDS ORDERED: FENTANYL CITR 100 MCG/2 ML ONE (12:03)
[2024-01-03] MEDS: Ringers Lactate 1,000 ML IV ONE (12:25)
[2024-01-03] MEDS: CEFOXITIN SODIUM 2 GM/VIAL ONE (12:25)
[2024-01-03] MEDS: LIDOCAINE HCL/EPINEPHRINE 20 ML MDV ONE (12:54)
[2024-01-03] MEDS ORDERED: NS 0.9% VIAL 20 ML ONE (13:14)
[2024-01-03] MEDS ORDERED: EPHEDRINE SULF 50 MG/ML VIAL ONE (13:19)
[2024-01-03] MEDS ORDERED: NEOSTIGMINE 1 MG/ML -10 ML VIAL ONE (13:38)
[2024-01-03] MEDS ORDERED: GLYCOPYRROLATE 0.2 MG/ML SYR ONE (13:38)
--- NOTE | 2024-01-03 13:50 | P.OP ---
Preoperative diagnosis: Chronic Cholecystitis with Cholelithiasis Postoperative diagnosis: Chronic Cholecystitis with Cholelithiasis Primary procedure: Laparoscopic Cholecystectomy with ICG Anesthesia: GETA + Local Estimated blood loss: <5cc Specimen: Gallbladder Findings: Short Cystic Duct, Short Cystic Artery Complications: None Transferred to: Recovery Room Condition: Good
[2024-01-03] MEDS: HYDROMORPHONE HCL 1 MG/ML INJ ONE ×2 (14:05→14:20)
[2024-01-03] MEDS ORDERED: Ringers Lactate 1,000 ML IV ONE (14:08)
[2024-01-03] MEDS: HYDROCODONE/APAP 7.5/325 MG TAB ONE (15:00)
[2024-01-03 15:32] VITALS: BP 117/65; TEMP 97.2; O2SAT 100
--- NOTE | 2024-01-04 01:03 | OP ---
Date of Procedure: 01/03/2024 Surgeon: Andrew Ricardo MD, Preoperative Diagnosis: Chronic cholecystitis with cholelithiasis. Postoperative Diagnosis: Chronic cholecystitis with cholelithiasis. Procedure Performed: Laparoscopic cholecystectomy with indocyanine green cholangiography. Anesthesia: General endotracheal plus local 1% lidocaine with epinephrine. Estimated Blood Loss: Less than 5 cc. Specimen: Gallbladder. Findings: Short cystic duct, short cystic artery, significant inflammatory changes throughout the en tire area of the ports as well as having intraperitoneal adipose tissue including the omentum firmly adherent to the anterior surface of the gallbladder extending all the way down. Complications: None. Disposition: The patient was transferred to recovery room in good condition. Procedure In Detail: After informed consent was obtained, the patient was brought to the operating r oom, prepped and draped in usual sterile fashion. After adequate anesthesia was achieved, anesthetiz ed the area of the supraumbilical position down to subcutaneous tissue. 5 mm 0 degree optical trocar was introduced in the abdomen without incident or complication. Insufflation was obtained to 15 mmH g at this time. There was no injury to vital structures upon entry in the abdomen. Two additional t rocars placed, 1 in the epigastrium, 1 in the right upper quadrant. Both of these were similarly ane sthetized, sharply incised. A 5 mm trocar was placed under direct visualization without incident or complication. The umbilical trocar was then upsized to a 12 mm under direct visualization without in cident or complication. The patient was positioned head up right-side up position. Ratcheted graspe r was used to grasp the patient's gallbladder, placed towards the patient's right shoulder. Dissecti on continued down to remove omental attachments to the anterior surface of the gallbladder using comb ination of blunt dissection as well as electrocautery. At this point, after the gallbladder was visu alized down to the Genie's pouch of the gallbladder, I skeletonized 2 structures, identified both cystic duct and cystic artery. Indocyanine green cholangiography confirmed the position at this poin t of the common duct and cystic duct confluence. I then visualized the area and the critical view of safety was obtained at this point. After these structures were skeletonized, it was noted that the cystic duct was quite short, but adequate length for placement of clips. At this point, I then noted that there was a close confluence of the right branch of hepatic artery and that a short branch of t he cystic artery coming off this, but adequate length for appropriate closure, but the extrahepatic c ourse was quite longer of the right hepatic artery and a very short takeoff right at the confluence w here the insertion of the right hepatic artery to the hilar plate was noted. At this point, the cyst ic duct and cystic artery were double titanium clipped on the proximal side and singly on the distal side, both cystic duct and cystic artery as described. Then, the gallbladder was removed from the he patic fossa without incident or complication after ligating these 2 structures between Endo Margarita. After the gallbladder was removed, it was placed in EndoCatch bag and removed through the umbilical t rocar and sent for pathologic examination. The area was copiously irrigated multiple times until com pletely clear. Hemostatic measures required on the lateral aspect of the gallbladder bed which was f ulgurated using electrocautery. At this point, the area was copiously irrigated once again and all e ffluent was suctioned out. At this point, I then inspected the area with indocyanine green cholangio graphy and once again found no leakage of bile throughout the procedure. At this point, the clips we re found to be in good anatomic position without any additional measures required. The patient was p ositioned back in neutral position. The 12 mm trocar site was then closed using a Scooby-Yisel florez ture passer with 0 Vicryl in interrupted fashion with good approximation of tissues. I then desuffla andrew the abdomen under direct visualization without incident or complication after appropriately closi ng that 12 mm trocar site using a Scooby-Yisel suture passer. At this point, the remaining trocar s were removed. All skin incisions were then copiously irrigated and closed with a 4-0 Monocryl in a running fashion. Dermabond was placed over top. The patient tolerated the procedure without incide nt or complication. Transferred to PACU in good condition. All counts were correct at the end of the case . HENRIETTA/GALINA Voice ID: [id number] Report ID: [id number]
== END 2024-01-03 15:24 | disposition home or self-care (01) ==
LOC: OR 11:26
PROVIDERS: ATTEND Surgery
PROC: BF50200 Other Imaging of Bile Ducts using Fluorescing Agent, Indocyanine Green Dye, Intraoperative (ICD-10-PCS; 2024-01-03)
PROC: 0FT44ZZ Resection of Gallbladder, Percutaneous Endoscopic Approach (ICD-10-PCS; principal; 2024-01-03 13:00)
DX: K80.10 Calculus of gallbladder with chronic cholecystitis without obstruction (principal)
CPT/HCPCS: 93005; 80048; 36415; 81025; 88304; 47605; A4216; J2704; J2710; J2001; J2250; J3010; J1100; J1170 ×2; J0694; J2405; J7120 ×2